=== PATIENT | female | born 1965 | race Caucasian/White ===

== ENCOUNTER 2020-04-05 15:45 | Outpatient (RCR) | payer OTHER, SELFPAY ==
--- NOTE | 2020-04-05 17:14 | PTOPEVAL ---
Thank you for referring Macey Thorpe to [facility].? The patient is scheduled to be seen for therapy? __2__x/week for 8 visits. Please review, sign, date and return this plan of care ARPIT. I agree with and certify that the following plan of care is medically necessary. Referring Physician Date Admitting Provider: Attending Provider: JUANCHO VELASCO Referring Provider: *PT Outpatient Evaluation Start: 04/05/20 15:59 Freq: Status: Active Protocol: Document 04/05/20 15:59 ACR (Rec: 04/05/20 17:02 ACR [id number]) Evaluation Information Problem Subjective Information Patient states she started Query Text:As Reported By Patient/ having incontinence issues Family since october and was diagnosed with cauda equina syndrome. Patient states she was able to transfer in September, but has not been able to since being diagnosed with cauda equina syndrome. After the diagnosis, she went to [place] and then [place] for acute rehab . She then got an infection in her spine that she was on antibiotics. She was home for 3 days then moved into a shelter while her renovated a bathroom to be handicapped. Patient's goal is to regain core strength and get legs more mobile. Patient uses a gregory lift all transfers. Patient stated that before she moved to a wheelchair in october, she fell 5 times breaking multiple bones starting in July. Patient states she has a yard driver that comes 6 days a week for 2 hours to assist with showering, dressing, and house chores. Patient states she has a pressure wound on her sacrum at the time and that it was cleared up but it came back. She states she has been doing weight shifts to relieve pressure. She also has an indwelling acosta catheter. Prior Level of Function Activity Level (Last 3 Months) Activity of Daily Living Ability
== END 2020-05-28 23:59 | disposition home or self-care (01) ==
LOC: CHSPT 15:45
DX: R53.1 Weakness (principal); R68.89 Other general symptoms and signs; Z74.09 Other reduced mobility
CPT/HCPCS: 97110; 97163; 97530

== ENCOUNTER 2020-07-09 15:06 | Outpatient (RCR) | payer OTHER, SELFPAY | END 2020-07-09 16:12 | disposition home or self-care (01) | LOC: CHSPT 15:06 | DX: R53.1 Weakness (principal); R68.89 Other general symptoms and signs; Z74.09 Other reduced mobility | CPT/HCPCS: 97110; 97530 ==

== ENCOUNTER 2023-10-25 13:30 | Outpatient (CLI) | payer BC, SELFPAY | END 2023-10-25 13:31 | disposition home or self-care (01) | LOC: CHSLAB 13:37 | PROVIDERS: PCP Family Medicine | DX: R78.81 Bacteremia (principal) | CPT/HCPCS: 87040 ==